=== PATIENT | female | born 1970 ===

== ENCOUNTER 2017-06-27 15:33 | Outpatient (CLI) | payer BC | END 2017-06-27 15:34 | disposition home or self-care (01) | LOC: BICMAMMO 15:33 | PROVIDERS: ATTEND Obstetrics & Gynecology | DX: Z12.31 Encounter for screening mammogram for malignant neoplasm of breast (principal) | CPT/HCPCS: 77063; 77067 ==

== ENCOUNTER 2018-07-07 15:07 | Outpatient (CLI) | payer BC ==
--- NOTE | 2018-07-07 16:01 | ULT ---
RIGHT BREAST ULTRASOUND: HISTORY: The patient returns for right breast ultrasound to evaluate an area of asymmetric increased density i n the upper aspect of the right breast on outside images from 07/01/2018. These are reviewed. Additio clyde, old examinations dated 06/27/2017, 01/28/2014, 05/26/2012, and 05/22/2012 are reviewed. This lar ge area of asymmetric density which was marked on the 07/01/2018 imaging appears to be little changed f rom those old studies. The upper portion of the right breast is evaluated with ultrasound. There are multiple slightly sept ated cysts in the right breast including a 0.4 cm cyst at 10 o'clock, 9 cm from the nipple, a 0.3 cm diameter cyst at 12 o'clock 9 cm from the nipple, and a 0.6 x 0.4 x 0.7 cm septated cyst at 1 o'clock 3 cm from the nipple. No evidence for solid mass or other evidence for malignancy. Considerable as ymmetric echogenic linear tissue. IMPRESSION: Multiple septated cysts in the upper aspect of the right breast. BIRADS category 2, benign findings. Continued routine screening. POS: OFF
== END 2018-07-07 15:08 | disposition home or self-care (01) ==
LOC: BICULT 15:07
PROVIDERS: ATTEND Obstetrics & Gynecology
DX: N63.10 Unspecified lump in the right breast, unspecified quadrant (principal); N60.01 Solitary cyst of right breast